=== PATIENT | female | born 1995 | race Two or more races ===

== ENCOUNTER 2020-10-02 07:32 | Day surgery (SDC) | payer OTHER ==
[2020-10-02] MEDS ORDERED: PERCOCET 5-3251 EACH PO (13:14)
== END 2020-10-02 19:05 | disposition home or self-care (01) ==
LOC: CIR.AMB 07:32
PROVIDERS: ATTEND Obstetrics & Gynecology Gynecology
DX: N75.0 Cyst of Bartholin's gland (principal); Z20.822 Contact with and (suspected) exposure to COVID-19